=== PATIENT | female | born 1960 | race Caucasian/White ===

== ENCOUNTER 2021-05-07 19:47 | Emergency (ER) | payer OTHER ==
[2021-05-07 19:53] VITALS: RESP 16; TEMP 98.1
[2021-05-07] MEDS ORDERED: SODIUM CHLORIDE 0.9% 1,000 ML IV STA (20:07)
[2021-05-07] MEDS ORDERED: HYDROmorphone 1 MG/ML 1 ML SYRINGE IVP STA ×2 (20:07→22:30)
[2021-05-07] MEDS ORDERED: ONDANSETRON 4 MG/2 ML VIAL IVP STA (20:07)
--- NOTE | 2021-05-07 20:28 | ED ---
Abdominal Pain HPI - General Chief Complaint: Abdominal Pain Stated Complaint: Abd Pain Time Seen by Provider: 05/07/21 19:54 Source: patient Mode of arrival: ambulatory Limitations: no limitations - History of Present Illness Initial Comments: 60 year-old female patient with past history significant for diabetes presents to the emergency department for evaluation of left lower quadrant abdominal pain that started 2-3 hours ago. Patient does report some radiation in to her back. She did have an episode of vomiting. Denies any fever or chills. Denies history of similar pain. Denies urine or stool changes. Denies history of abdominal surgery. Patient denies any recent rash, cough, shortness of breath, chest pain, diarrhea, constipation, back pain, numbness, tingling, dizziness, weakness, headache, visual changes, or any other complaints. - Related Data Allergies Allergy/AdvReac Type Severity Reaction Status Date / Time Penicillins Allergy Rash/Hives Verified 05/07/21 19:49 Review of Systems ROS Statement: Those systems with pertinent positive or pertinent negative responses have been documented in the HPI. ROS Other: All systems not noted in ROS Statement are negative. Past Medical History Past Medical History: Diabetes Mellitus, Thyroid Disorder History of Any Multi-Drug Resistant Organisms: None Reported Past Surgical History: Section Past Psychological History: No Psychological Hx Reported Smoking Status: Never smoker Past Alcohol Use History: None Reported Past Drug Use History: None Reported General Exam Limitations: no limitations General appearance: alert, in no apparent distress, other (This is a well- developed, well-nourished adult female patient in mild distress related to pain. Vital signs upon presentation are temperature 98.1F, pulse 77, respirations 16, blood pressure 180/102, pulse ox 99% on room air.) Eye exam: Present: normal appearance, PERRL, EOMI. Absent: scleral icterus, conjunctival injection, periorbital swelling ENT exam: Present: normal exam, normal oropharynx, mucous membranes moist Respiratory exam: Present: normal lung sounds bilaterally. Absent: respiratory distress, wheezes, rales, rhonchi, stridor Cardiovascular Exam: Present: regular rate, normal rhythm, normal heart sounds. Absent: systolic murmur, diastolic murmur, rubs, gallop, clicks GI/Abdominal exam: Present: soft, tenderness (Left lower quadrant), normal bowel sounds. Absent: distended, guarding, rebound, rigid Neurological exam: Present: alert, oriented X3, CN II-XII intact Psychiatric exam: Present: normal affect, normal mood Skin exam: Present: warm, dry, intact, normal color. Absent: rash Course Vital Signs 05/07/21 19:49 Temperature 98.1 F Pulse Rate 77 Respiratory 16 Rate Blood Pressure 180/102 O2 Sat by Pulse 99 Oximetry Medical Decision Making - Medical Decision Making 60-year-old female patient presents the emergency department today for evaluation of left lower quadrant abdominal pain radiating through to the back. Physical examination did reveal left lower quadrant tenderness. Labs reviewed and were unremarkable. CT abdomen and pelvis was obtained and did reveal large cystic mass over the midline which they believe is ovarian cyst. Ultrasound was obtained to determine presence of torsion, did redemonstrate the thin walled cystic mass however they were unable to visualize the ovaries. I did discuss findings and results with the cleaner signs on-call Dr. Mcadams, due to patient's level of pain and concern for possible malignancy he did recommend transfer to a tertiary care facility with availability of an informatics pharmacist-onc specialist. I did discuss results and plan with the patient and her sister Haylie ([phone]), they are agreeable to transfer and request [facility]. Case discussed with my attending Dr. River. - Lab Data Result diagrams: 05/07/21 20:20 05/07/21 20:20 Lab Results 05/07/21 05/07/21 05/07/21 Range/Units 20:20 20:20 20:20 WBC 6.1 (3.8-10.6) k/uL RBC 5.11 (3.80-5.40) m/uL Hgb 14.7 (11.4-16.0) gm/dL Hct 44.3 (34.0-46.0) % MCV 86.7 (80.0-100.0) fL MCH 28.7 (25.0-35.0) pg MCHC 33.1 (31.0-37.0) g/dL RDW 13.3 (11.5-15.5) % Plt Count 207 (150-450) k/uL MPV 6.9 Neutrophils % 60 % Lymphocytes % 30 % Monocytes % 7 % Eosinophils % 0 % Basophils % 1 % Neutrophils # 3.7 (1.3-7.7) k/uL Lymphocytes # 1.8 (1.0-4.8) k/uL Monocytes # 0.4 (0-1.0) k/uL Eosinophils # 0.0 (0-0.7) k/uL Basophils # 0.1 (0-0.2) k/uL Sodium 139 (137-145) mmol/L Potassium 4.0 (3.5-5.1) mmol/L Chloride 107 (98-107) mmol/L Carbon Dioxide 25 (22-30) mmol/L Anion Gap 7 mmol/L BUN 20 H (7-17) mg/dL Creatinine 1.03 (0.52-1.04) mg/dL Est GFR (CKD-EPI)AfAm 68 (>60 ml/min/1.73 sqM) Est GFR (CKD-EPI)NonAf 59 (>60 ml/min/1.73 sqM) Glucose 210 H (74-99) mg/dL Plasma Lactic Acid Kulwant 1.4 (0.7-2.0) mmol/L Calcium 9.7 (8.4-10.2) mg/dL Total Bilirubin 1.0 (0.2-1.3) mg/dL AST 33 (14-36) U/L ALT 39 H (4-34) U/L Alkaline Phosphatase 104 (38-126) U/L Total Protein 6.7 (6.3-8.2) g/dL Albumin 4.1 (3.5-5.0) g/dL Lipase 78 (23-300) U/L - Radiology Data Radiology results: report reviewed, image reviewed Ultrasound of the pelvis was performed, impression by Dr. Rincon shows large thin walled cystic mass above the urinary bladder is probably ovarian cyst. No free fluid in the pelvis. Normal uterus. Unable to visualize the ovaries on this exam. CT abdomen and pelvis with contrast was obtained. Report was reviewed in its entirety. Impression by Dr. Rincon shows large midline cystic pelvic mass probably ovarian cyst. Follow-up recommended. Normal appendix. Disposition Clinical Impression: Ovarian cystic mass Disposition: OTHER INSTITUTION NOT DEFINED Condition: Serious Referrals: Nonstaff,Physician [Primary Care Provider] - 1-2 days - Out of Hospital Transfer - Req. Specs Out of Hospital Transfer - Requested Specifics: Other Emergency Center ([facility]ly [facility]
[2021-05-07 20:39] LABS: Basophils # (A) 0.1 k/uL (0-0.2); Basophils % (A) 1 %; Eosinophils % (A) 0 %; HCT 44.3 % (34.0-46.0); HGB 14.7 gm/dL (11.4-16.0); Lymphocytes # (A) 1.8 k/uL (1.0-4.8); Lymphocytes % (A) 30 %; MCH 28.7 pg (25.0-35.0); MCHC 33.1 g/dL (31.0-37.0); MCV 86.7 fL (80.0-100.0); Mean Platelet Volume 6.9; Monocytes # (A) 0.4 k/uL (0-1.0); Monocytes % (A) 7 %; Neutrophils # (A) 3.7 k/uL (1.3-7.7); Neutrophils % (A) 60 %; Platelet Count 207 k/uL (150-450); RBC 5.11 m/uL (3.80-5.40); RDW 13.3 % (11.5-15.5); WBC 6.1 k/uL (3.8-10.6)
[2021-05-07 20:51] LABS: Albumin 4.1 g/dL (3.5-5.0); Calcium 9.7 mg/dL (8.4-10.2); Total Protein 6.7 g/dL (6.3-8.2)
[2021-05-07] MEDS ORDERED: HYDROmorphone 0.5 MG/0.5 ML SYRINGE IVP STA (20:57)
[2021-05-07] MEDS ORDERED: diphenhydrAMINE 50 MG/ML 1 ML VIAL IVP STA (22:01)
[2021-05-07] MEDS ORDERED: METOCLOPRAMIDE 5 MG/ML 2 ML VIAL IVP STA (22:01)
--- NOTE | 2021-05-07 22:14 | CT ---
EXAMINATION TYPE: CT abdomen pelvis w con DATE OF EXAM: 05/07/2021 COMPARISON: None HISTORY: LLQ pain, vomiting CT DLP: 2124.7 mGycm Automated exposure control for dose reduction was used. CONTRAST: Performed with IV Contrast, patient injected with 100 mL of Isovue 300. There is mild subsegmental atelectasis at the lung bases. Heart size is normal. There is no pericardial effusion. There is hiatal hernia. There is no pleural e ffusion. Liver spleen pancreas stomach appear intact. The bile ducts are not dilated. Gallbladder is intact. There is no adrenal mass. Kidneys show satisfactory contrast opacification. There is no hydronephrosi s. Delayed images show normal renal excretion. There is no retroperitoneal adenopathy. Bladder disten ds smoothly. Uterus is anteverted. There is large cystic mass in the midline pelvis above the urinary bladder that measures 12.5 cm in diameter. This is probably a cyst arising from the left ovary. There is no inguinal hernia. There is no free fluid in the pelvis. There is no mesenteric edema. Ther e is no ascites or free air. There is no bowel obstruction. Appendix appears normal. The lumbar verte bra have normal alignment. There is no compression fracture. There is vacuum disc at L5-S1. The bony pelvis is intact. The hip joints are intact. IMPRESSION: Large midline cystic pelvic mass is probably ovarian cyst. Follow-up recommended. Normal appendix.
--- NOTE | 2021-05-07 23:21 | US ---
EXAMINATION TYPE: US pelvis complete transvag DATE OF EXAM: 05/07/2021 COMPARISON: ct 05/07/2021 CLINICAL HISTORY: Lg left ovarian cyst; r/o torsion. post menopausal bleeding TECHNIQUE: . Transabdominal sonographic images of the pelvis were acquired. Transvaginal sonographi c images were medically necessary to better assess the following anatomy: Adnexa Date of LMP: Years ago per patient EXAM MEASUREMENTS: Uterus: 6.7 x 3.5 x 3.8 cm Endometrial Stripe: 0.7 cm Right Ovary: Not visualized Left Ovary: Not visualized 1. Uterus: Anteverted wnl as visualized 2. Endometrium: Thickened for post menopausal female 3. Right Ovary: Not visualized 4. Left Ovary: Not visualized 5. Bilateral Adnexa: Midline, just superior to the uterus, there is a large cystic area visualized m easuring 10.9 x 7.8 x 11.9 cm. Unable to visualized any normal ovarian tissue. Some peripheral vascul arity is visualized 6. Posterior cul-de-sac: No free fluid visualized IMPRESSION: Large thin wall cystic mass above the urinary bladder is probably ovarian cyst. No free fluid in the pelvis. Normal uterus.
[2021-05-08 01:05] LABS: Appearance,Urine Clear (Clear); Bilirubin,Urine Negative (Negative); Blood,Urine Small (Negative); Color,Urine Yellow; Glucose,Urine (UA) Negative (Negative); Ketones,Urine Negative (Negative); Leukocyte Esterase,Urine Negative (Negative); Mucus,Urine Rare /hpf; Nitrite,Urine Negative (Negative); Protein,Urine Negative (Negative); RBC,Urine <1 /hpf (0-5); Urobilinogen,Urine <2.0 mg/dL (<2.0); WBC,Urine 1 /hpf (0-5)
[2021-05-08] MEDS ORDERED: HYDROmorphone 0.5 MG/0.5 ML SYRINGE IVP STA (01:10)
[2021-05-08 01:20] VITALS: BP 157/80; PULSE 72
== END 2021-05-08 01:19 | disposition other institution (70) ==
LOC: EC 19:47
DX: N83.202 Unspecified ovarian cyst, left side (principal); E11.9 Type 2 diabetes mellitus without complications; Z88.0 Allergy status to penicillin
CPT/HCPCS: 36415; 80053; 83605; 83690; 85025; 81001; 76856; 76830; 74177; 96374; 96375 ×3; 96376 ×3; 96361; 99284; J1200; J2765; J2405; J1170 ×3; Q9967